=== PATIENT | male | born 1980 | race Caucasian/White ===

== ENCOUNTER 2017-03-13 13:11 | Emergency (ER) | payer SELFPAY ==
[~2017-03-13] VITALS: Ht 175.3 cm; Wt 83.9 kg
[2017-03-13 14:58] VITALS: BP 150/87
--- NOTE | 2017-03-13 15:38 | NUR ---
37/M BIB SELF C/O NEEDLE STICK ON RT HAND BELOW 5TH DIGIT FROM A TATOO NEEDLE; DENIES PAIN. Addendum: 03/13/17 at 1540 by [email or web address] PT STS" I ONLY WANT TETANUS VACCINE".
[2017-03-13 16:50] VITALS: BP 150/87
--- NOTE | 2017-03-13 16:51 | NUR ---
Patient discharged with v/s stable. Written and verbal after care instructions given and explained. Patient verbalized understanding. Ambulatory with steady gait. All questions addressed prior to discharge. Advised to follow up with PMD.
== END 2017-03-13 16:51 | disposition home or self-care (01) ==
LOC: MED 13:11
DX: Z77.21 Contact with and (suspected) exposure to potentially hazardous body fluids (principal)
CPT/HCPCS: 36415; 87340; 90471; 90715; 99284